=== PATIENT | male | born 2000 | race African-American/Black ===

== ENCOUNTER 2021-10-11 23:15 | Emergency (ER) | payer MEDICAID ==
[~2021-10-11] VITALS: Ht 180.3 cm; Wt 77.0 kg
[2021-10-11] MEDS ORDERED: EPIN0.3P3 IM (23:56)
[2021-10-11] MEDS ORDERED: P20 PO (23:56)
[2021-10-12] MEDS ORDERED: PREDNISONE 20MG TABLET PO ONE
[2021-10-12 00:07] VITALS: BP 115/85
== END 2021-10-12 00:17 | disposition home or self-care (01) ==
LOC: ER 23:15
DX: T78.49XA Other allergy, initial encounter (principal); X58.XXXA Exposure to other specified factors, initial encounter; R05.9 Cough, unspecified; R07.89 Other chest pain; J45.909 Unspecified asthma, uncomplicated
CPT/HCPCS: 93005; 99283